=== PATIENT | male | born 1975 | race American Indian/Alaskan Native ===

== ENCOUNTER 2020-07-19 13:38 | Outpatient (CLI) | payer OTHER ==
--- NOTE | 2020-07-19 18:00 | Ultrasound Report ---
SOFT TISSUE ULTRASOUND RIGHT GROIN INDICATION: SMALL RIGHT GROIN PAIN. COMPARISON: None available. FINDINGS: Moderate size right internal hernia measuring 0.7 x 1.9 x 5.4 cm containing bowel which moves on Vals mays maneuver Signer Name: Jeff Can MD Signed: 07/19/2020 5:56 PM Workstation Name: [id number]
== END 2020-07-19 13:39 | disposition home or self-care (01) ==
LOC: US 13:38 → EDSEX 13:38 → US 13:39
PROVIDERS: ATTEND Internal Medicine
DX: K40.90 Unilateral inguinal hernia, without obstruction or gangrene, not specified as recurrent (principal)

== ENCOUNTER 2021-02-07 14:52 | Outpatient (CLI) | payer OTHER | END 2021-02-07 14:53 | disposition home or self-care (01) | LOC: ECHO 14:52 | PROVIDERS: ATTEND Internal Medicine | DX: I08.3 Combined rheumatic disorders of mitral, aortic and tricuspid valves (principal) | CPT/HCPCS: 93306 ==